=== PATIENT | female | born 1985 | race Caucasian/White ===

== ENCOUNTER 2019-10-20 07:49 | Inpatient (IN) ==
[2019-10-20] MEDS ORDERED: OXYTOCIN 30 UNITS/500 ML BAG IV PRN ×3 (08:02→18:51)
[2019-10-20 08:30] LABS: Hematocrit (blood only) 34.3 % (37-47); Hemoglobin 11.8 g/dL (12.0-16.0); Mean Corpuscular Hemoglobin 30.4 pg (25-34); Mean Corpuscular Volume 88.4 fL (80-100); Mean Platelet Volume 9.6 fL (7.4-10.4); Platelet Count 243 K/uL (130-400); RDW Coefficient of Variation 13.2 % (11.5-14.5); RDW Standard Deviation 42.3 fL (36.4-46.3); Red Blood Count 3.88 M/uL (4.2-5.4); White Blood Count 11.27 K/uL (4.8-10.8)
[2019-10-20 08:36] LABS: Mean Corpuscular Hgb Conc 34.4 g/dL (32-36)
--- NOTE | 2019-10-20 08:41 | History & Physical Report ---
Date of Service October 20, 2019 Assessment & Plan (1) Encounter for supervision of normal in multigravida: Baby is in transverse position on imaging at bedside. I offered version vs C/S prefers version. Discussed risks in depth including distress. Will place epidural first, version with Dr. Grayson, then likely AROM History of Present Illness Primary Care Provider: Barrie Ellsworth 3rd baby induction for prior LGA 39 completed weeks. Cervical suarez last night. Palpated as vertex yesterday in office. 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 Normal labor and delivery Varicella Surgical History History of dilation and curettage 2012 Social History (Updated 03/16/19 @ 10:31 by Margarita Garcia) Preferred Language: Com[place]an Communication Ability: Effective Manager Building Required: No Beliefs That Will Affect Care: None marital status: marital status details: Natanael Cruz (28) [phone] Current Living Situation: Spouse and Family Current Living Situation Comment: house current occupational status: employed current occupation: [employer] Fluten Free Other Information That Helps Us Care for You: No Feels Safe at Home: Yes Safety Concerns: Feels Safe At This Time Smoking Status: Never smoker Hx Alcohol Use: No Hx Substance Use: No Physical Exam Constitutional: WD/WN, vitals as above Respiratory: normal respiratory effort, lungs clear to auscultation Cardiovascular: RRR, no murmur, no edema Genitourinary: OB Exam Abdomen: + transverse Manual OB Exam: + cervical dilation 3 cm and + station high OB Exam Monitor Tracing: + external FHT monitor used Results & Data Vital Signs (Past 12 Hours) Vital Signs Temp Pulse Resp BP 10/20/19 08:00 98.2 F 85 20 145/70 H 10/20/19 07:51 98.2 F 20 Coding Level of Care Code None Diagnoses Encounter for supervision of normal in multigravida Z34.80
[2019-10-20] MEDS: LACTATED RINGER'S 1,000 ML IV PRN ×3 (08:45→10:49)
[2019-10-20] MEDS ORDERED: fentaNYL 2MCG/ML ROPIV 1.25MG/ML 100 ML BAG EPI ONE (08:59)
[2019-10-20] MEDS ORDERED: fentaNYL citrate 100 MCG/2 ML VIAL ONE (08:59)
[2019-10-20] MEDS ORDERED: ePHEDrine sulfate 50 MG/ML AMP ONE (08:59)
[2019-10-20] MEDS ORDERED: BUPIVACAINE 0.25% 30 ML VIAL ONE (08:59)
--- NOTE | 2019-10-20 09:13 | Anesthesiology Consultation ---
Date of Service October 20, 2019 Assessment & Plan Consults Requested medical & cardiac Pulmonary ASA ASA2 Proposed Anesthesia Anesthesia Type: Labor Epidural Risk / Benefits Reviewed With: PT / POA / Parent / Guardian, Accepts Plan and Informed Consent Obtained History Height/Weight Height: 5 ft 2 in Weight: 80.286 kg Allergies Allergy/AdvReac Type Severity Reaction Status Date / Time No Known Allergies Allergy Verified 10/19/19 15:11 Medications Home Medications Medication Instructions Recorded Confirmed Last Taken cetirizine 10 mg capsule 10 mg PO DAILY 03/16/19 10/20/19 10/19/19 21:30 prenat.vits,harry,[id number] 1 tab PO DAILY 03/16/19 10/20/19 10/19/19 21:30 docusate sodium [Colace] 100 mg PO DAILY 10/20/19 10/20/19 10/19/19 21:30 Active Medications Generic Name Dose Route Start Last Admin Trade Name Freq PRN Reason Stop Dose Admin Lactated Ringer's 1,000 mls @ 125 mls/hr 10/20/19 08:02 10/20/19 09:45 Lr IV 10/22/19 08:01 999 mls/hr .Q8H PRN Administration L&D Protocol Protocol Past Medical History Medical History (Updated 10/20/19 @ 07:18 by Latanya Arroyo RN) Encounter for pre-operative examination 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 Normal labor and delivery Varicella Exercise / Class Metabolic Activity II 4-5 Yardwork/Stairs/Walk up hill Past Surgical History Surgical History History of dilation and curettage 2012 Past Anesthesia History No Hx of Anesthesia Complications and No Family Hx of Anesthesia Complications History of PONV No Hx of PONV and No Hx of Motion Sickness Social History Smoking Status: Never smoker Hx Alcohol Use: No Hx Substance Use: No Review of Systems denies fever/cough/ colds/ chest pain/ SOB/ EMERSON Constitutional: no fever and no chills Respiratory: no cough and no dyspnea denies EMERSON Cardiovascular: no chest pain and no dyspnea on exertion Physical Exam Vital Signs Last Vital Signs Temp 36.8 C 10/20/19 08:00 Pulse 98 H 10/20/19 10:00 Resp 20 10/20/19 08:00 BP 111/65 10/20/19 09:59 Pulse Ox 96 10/20/19 10:00 ENMT Mouth: no TMJ abnormality and no dentition abnormality Thyromental Distance: > or= 3.5 Finger Breadths Mallampati Class: II Neck neck extension not limited Respiratory normal respiratory effort; no respiratory distress Auscultation: lungs clear to auscultation bilaterally Cardiovascular Rate/Rhythm: regular rate and regular rhythm Neurologic moves all extremities Psychiatric Orientation: alert and oriented x 3 Testing Laboratory Results 10/20/19 08:16 Blood Type O Positive 10/20/19 08:16 Antibody Screen NEGATIVE 10/20/19 08:16
[2019-10-20] MEDS ORDERED: NALBUPHINE HCL INJ 10 MG/ML AMP IV PRN (10:04)
[2019-10-20] MEDS ORDERED: ONDANSETRON INJ 2 MG/ML 2 ML VIAL IV PRN (10:04)
[2019-10-20] MEDS ORDERED: DiphenhydrAMINE HCL 50 MG/ML VIAL IV PRN (10:04)
[2019-10-20] MEDS ORDERED: fentaNYL 2MCG/ML ROPIV 1.25MG/ML 100 ML BAG EPI PRN (10:04)
[2019-10-20] MEDS ORDERED: NALOXONE HCL 1 MG in SODIUM CHLORIDE 0.9% 1000ML 1,000 ML IV PRN (10:04)
[2019-10-20] MEDS ORDERED: NALOXONE HCL 0.4 MG/1 ML VIAL/CARP IV PRN (10:04)
[2019-10-20] MEDS ORDERED: ePHEDrine sulfate 50 MG/ML AMP IV PRN (10:04)
--- NOTE | 2019-10-20 10:18 | Obstetrical Progress Note ---
Date of Service Version performed by Dr. Grayson for oblique/transverse position. Patient had epidural. Version successful. AROM for clear fluid done Binder placed on abdomen to stabilize position. FHR cat 1 post procedure October 20, 2019 Results & Data Vital Signs (Past 12 Hours) Vital Signs Temp Pulse Resp BP Pulse Ox 10/20/19 10:15 92 H 94/50 L 97 10/20/19 10:10 102 H 125/70 97 10/20/19 10:06 114 H 120/61 10/20/19 10:05 112 H 97 10/20/19 10:00 98 H 96 10/20/19 09:59 99 H 111/65 10/20/19 09:57 86 116/58 L 10/20/19 09:55 90 112/60 96 10/20/19 09:53 86 107/59 L 10/20/19 09:51 93 H 108/55 L 10/20/19 09:50 92 H 96 10/20/19 09:49 75 100/54 L 10/20/19 09:47 78 95/51 L 10/20/19 09:45 84 101/55 L 97 10/20/19 09:43 71 103/60 10/20/19 09:41 68 100/56 L 94 10/20/19 09:40 68 95 10/20/19 09:38 61 80/41 L 10/20/19 09:36 74 89/52 L 10/20/19 09:35 67 97 10/20/19 09:30 88 98 10/20/19 08:00 98.2 F 85 20 145/70 H 10/20/19 07:51 98.2 F 20 PG Care Time/CCT Total # of Minutes Spent Total Time Spent with Patient: Total time spent is greater than 50% in coordination of care (as documented) at patient's floor/unit and/or counseling patient: Coding Level of Care Code None
[2019-10-20] MEDS ORDERED: ACETAMINOPHEN 325 MG TAB PO PRN ×2 (16:24→18:51)
--- NOTE | 2019-10-20 18:41 | Delivery Summary ---
Vaginal Delivery Summary Date of Service October 20, 2019 Vaginal Delivery Summary Patient delivered vaginally over an 2nd degree perineum tear. Baby delivered in occiput anterior position. Mouth and nares then suctioned with bulb. No nuchal cord, fluid was clear. Baby delivered with gentle traction, no excess force used. Live vigorous . Cord clamped and cut. Gases obtained and cord blood obtained. Repair with 3-0 vicryl. Placenta removed with traction. Pitocin started and uterine tone improved. Bleeding improved. Sponge and instrument counts correct. EBL= 200
[2019-10-20] MEDS ORDERED: SUPERCREAM 0.870% 15 GM JAR EXT PRN (18:51)
[2019-10-20] MEDS ORDERED: OXYCODONE/ACETAMINOPHEN 5mg/325mg TAB PO PRN (18:51)
[2019-10-20] MEDS ORDERED: BENZOCAINE 20% AER SPR 82.5 GM CAN EXT PRN (18:51)
[2019-10-20] MEDS ORDERED: DIPHTHERIA/TETANUS/PERTUSSIS 0.5 ML SYR/VIAL IM ONE (18:51)
[2019-10-20] MEDS ORDERED: bisacodyL 10 MG SUPP PR PRN (18:51)
[2019-10-20] MEDS ORDERED: HYDROCORTISONE ACETATE 25 MG SUPP PR PRN (18:51)
[2019-10-20 18:58] LABS: Base Excess Cord Arterial Bld -0.7 mEq/L (-9-1.8); CO2 Cord Arterial Blood 56 mmHg (39.1-73.5); HCO3 Cord Arterial Blood 27 mmol/L (19.7-28.5); PO2 Cord Arterial Blood 13 mmHg (4.1-31.7)
[2019-10-20 19:02] LABS: Base Excess Cord Venous Blood -0.7 mEq/L (-7.7-1.9); Cord Venous Blood HCO3 25 mmol/L (18.4-26.8); Cord Venous Blood PCO2 43 mmHg (30.4-57.2); Cord Venous Blood PO2 24 mmHg (14.1-43.3); Cord Venous Blood pH 7.38 (7.20-7.44)
[2019-10-20 19:04] LABS: Oxygen Sat Cord Arterial Blood < 60.0 % (<60)
[2019-10-20 19:05] LABS: O2 Saturation Cord Venous Bld < 60.0 % (<68)
--- NOTE | 2019-10-20 19:31 | Anesthesia Procedure Note ---
Date of Service October 20, 2019 Anesthesia Post Epidural Note Vital Signs Vital Signs: Temp Pulse Resp BP Pulse Ox 37.2 C 80 20 117/66 95 10/20/19 17:11 10/20/19 19:26 10/20/19 17:11 10/20/19 19:26 10/20/19 18:55 Notes Mental Status: alert / awake / arousable and participated in evaluation Nausea / Vomiting: adequately controlled Pain: adequately controlled Airway Patency, RR, SpO2: stable & adequate BP & HR: stable & adequate Hydration State: stable & adequate Neuraxial Anesthesia: was administered and sensory block is resolving Anesthetic Complications: no major complications apparent and Pt Satisfied with anesthetic care Epidural: Removed without complications and With tip intact
[2019-10-20] MEDS ORDERED: DOCUSATE SODIUM 100 MG CAP PO SCH (21:00)
[2019-10-20] MEDS: IBUPROFEN 600 MG TAB PO PRN (22:02)
[2019-10-21] MEDS: IBUPROFEN 600 MG TAB PO PRN ×3 (02:05→13:55)
[2019-10-21 06:32] LABS: Hematocrit (blood only) 31.1 % (37-47); Hemoglobin 10.6 g/dL (12.0-16.0); Mean Corpuscular Hemoglobin 30.2 pg (25-34); Mean Corpuscular Hgb Conc 34.1 g/dL (32-36); Mean Corpuscular Volume 88.6 fL (80-100); Mean Platelet Volume 9.5 fL (7.4-10.4); Platelet Count 225 K/uL (130-400); RDW Coefficient of Variation 13.5 % (11.5-14.5); RDW Standard Deviation 43.2 fL (36.4-46.3); Red Blood Count 3.51 M/uL (4.2-5.4); White Blood Count 17.45 K/uL (4.8-10.8)
--- NOTE | 2019-10-21 07:59 | Obstetrical Progress Note ---
Date of Service October 21, 2019 Assessment & Plan (1) state: ppd 1 cont current care Subjective Ambulation: ambulating normally Voiding: no voiding problems Passing Gas:: Yes Diet Tolerance:: regular diet Lochia:: Moderate Feeding Type:: breast feeding Current Pain Level(1-10): 1 Physical Exam Constitutional WD/WN, vitals as above Gastrointestinal (Abdomen) normal bowel sounds, soft, nontender, no hepatosplenomegaly (Ext neg) Results & Data Vital Signs (Past 12 Hours) Vital Signs Temp Pulse Pulse Pulse Resp BP BP 10/21/19 04:00 98.2 F 73 16 115/80 10/21/19 00:30 98.6 F 99 H 16 117/71 10/20/19 22:00 99.1 F 98 H 18 122/69 10/20/19 21:15 98.2 F 20 10/20/19 20:56 109 H 137/67 10/20/19 20:41 107 H 137/63 10/20/19 20:26 83 140/69 10/20/19 20:11 90 131/77
[2019-10-21] MEDS ORDERED: PRENATAL VITAMIN 1 TAB PO SCH (08:00)
[2019-10-21] MEDS ORDERED: CETIRIZINE HCL 10 MG TABLET PO SCH (09:00)
[2019-10-21] MEDS ORDERED: DOCUSATE SODIUM 100 MG CAP PO SCH (09:00)
[2019-10-21] MEDS ORDERED: NON-FORMULARY MEDICATION (Prenat.Vits,Cal,Min-Iron-Folic 1 TAB) PO SCH (09:00)
[2019-10-21] MEDS ORDERED: bisacodyL 5 MG TABEC PO SCH (20:00)
== END 2019-10-21 19:17 | disposition home or self-care (01) | DRG 807 ==
LOC: 4S1 07:49 → 4S2 22:05